=== PATIENT | female | born 1950 | race Caucasian/White ===

== ENCOUNTER 2019-05-08 15:08 | Inpatient (IN) | payer MEDICARE, SELFPAY ==
[2019-05-08 13:58] VITALS: BMI 28.9
[2019-05-08 15:10] VITALS: BP 104/68; PULSE 95; RESP 18; TEMP 36.7; O2SAT 96; BMI 29.4
[2019-05-08 16:35] LABS: Absolute Neutrophil Count 1.6 X10^3/uL (2.0-7.7); Neutrophil # 1.63 X10^3/uL (2.7-7.7); POSITIVE MORPHOLOGY YES; White Blood Count 3.3 K/mm3 (4.4-11.0)
[2019-05-08 16:36] LABS: NRBC Flagged by Analyzer 1.5 % (0-5)
[2019-05-08 16:37] LABS: Differential Indicated SCAN CRITERIA MET
[2019-05-08 16:39] LABS: Red Blood Count 2.74 M/mm3 (4.2-5.4)
[2019-05-08 16:40] LABS: Hematocrit 29.9 % (37-47); Hemoglobin 9.8 g/dL (12.0-15.0); Mean Corpuscular Hgb 35.8 pg (27.0-32.0); Mean Corpuscular Volume 109.1 fL (81-99)
[2019-05-08 16:41] LABS: Mean Corp Hgb Conc 32.8 g/dL (32-36); Platelet Count 55 K/mm3 (150-450); RBC Distribution Width CV 24.7 % (11.6-14.6); RBC Distribution Width SD 92.7 fl (35.1-43.9)
[2019-05-08 16:42] LABS: Lymphocyte % 23.5 % (19-41); Mean Platelet Vol. 12.1 fl (6.2-12.0); Monocyte% 24.7 % (0-10); Neutrophil % 49.7 % (47-70); POSITIVE COUNT NO; POSITIVE DIFFERENTIAL NO
[2019-05-08 16:43] LABS: Basophil% 0.6 % (0-1); Eosinophils% 0.3 % (0-5); Lymphocyte # 0.77 X10^3/ul (4.0)
[2019-05-08 16:44] LABS: Absolute Lymphocyte Count 0.77 X10^3/uL (0.83-4.51); Basophil# 0.02 X10^3/uL; Eosinophil# 0.01 X10^3/uL; Monocyte# 0.81 X10^3/uL
[2019-05-08 16:49] LABS: Anion Gap 7 (5-15); BUN 22 mg/dL (7-18); BUN/Creat Ratio 24.9 RATIO (10-20); Calcium,Total 9.7 mg/dL (8.5-10.1); Chloride 101 mmol/L (98-107); Creatinine, Serum 0.88 mg/dL (0.55-1.02); EST Glomerular Filtration Rate 67 mL/min (>60); Est Glom Filt Rate - Afr Amer 81 mL/min (>60); Glucose 110 mg/dL (74-106); Potassium 4.4 mmol/L (3.5-5.1); Sodium Level 135 mmol/L (136-145)
[2019-05-08 16:51] LABS: International Normalized Ratio 1.5; Prothrombin Time (Protime)PT. 17.9 SECONDS (11.7-14.9)
[2019-05-08 17:07] LABS: Anisocytosis 1+; Macrocytosis 1+; Platelet Estimate MOD DEC (ADEQ)
[2019-05-08] MEDS: Ondansetron 4 MG/2 ML Vial IV (18:08)
[2019-05-08] MEDS: Morphine 4 MG/ML Syringe IV (18:08)
[2019-05-08 18:13] VITALS: BP 103/70; PULSE 98; RESP 15; O2SAT 98
[2019-05-08 18:19] LABS: AST(SGOT) 12 U/L (15-37); Alanine Aminotransfer ALT/SGPT 18 U/L (13-56); Albumin, Serum 3.4 g/dL (3.2-5.0); Alkaline Phosphatase 95 U/L (45-117); Bilirubin, Direct 0.47 mg/dL (0.00-0.30); Globulin 3.7 g/dL (2.2-4.2); Protein, Total 7.1 g/dL (6.4-8.2)
[2019-05-08 18:30] LABS: D-Dimer Quantitative (DVT/PE) 8.86 FEU/ug/m (0.27-0.49)
--- NOTE | 2019-05-08 18:31 | CT_ITS ---
STUDY: CTA CHEST REASON FOR EXAM: Female, 69 years old. BACK PAIN, DYSPNEA, RECENT THORACENTESIS, ASCITES, HYSTERECTOMY, VALVE REPLACEMENT, HX LYMPHOMA YEARS AGO RADIATION DOSAGE (If Supplied By Facility): CTDIvol = ( 13.51 ) mGy, DLP = ( 393.42 ) mGycm TECHNIQUE: The examination was performed with the intravenous administration of IV 100mL [id number]-370 100ML. Post-processing of the angiographic images was performed, with multiplanar reformation and 3D reconstruction. Individualized dose optimization techniques were used for this CT. COMPARISON: None. FINDINGS: Right lower lobe atelectasis with complete collapse is present. A moderate size right pleural effusion is present. There is minimal atelectasis of the posterior aspect of the right middle lobe. Normal right upper lobe. Minor pleural thickening is present in the left lower lobe. No consolidation. No pneumothorax. Normal enhancement of the main pulmonary artery and right and left pulmonary arteries. Normal enhancement of the bilateral peripheral pulmonary arteries. There is no demonstrated pulmonary embolism. There is atherosclerotic calcification of the aortic arch with tortuosity. A vascular stent graft is present aortic root. There is no demonstrated aortic dissection. Normal heart and pericardium. Normal mediastinum. Normal hilar regions. Normal visualized trachea and bronchi. Normal chest wall structures. There are degenerative changes of thoracic spine. No aggressive osseous process visualized. A large amount of abdominal ascites is present. The liver appears shrunken and cirrhotic. Mild enlargement of the spleen. Benign hyperplasia versus a small nodule of the left adrenal gland incompletely assessed on this study. CT/CTA Chest W/WO Contrast IMPRESSION: 1. Right lower lobe atelectasis with complete collapse is present. 2. A moderate size right pleural effusion is present. 3. No demonstrated pulmonary embolism or arterial dissection. 4. A large amount of abdominal ascites is present. The liver appears shrunken and cirrhotic. 5. Mild enlargement of the spleen. 6. Benign hyperplasia versus a small nodule of the left adrenal gland incompletely assessed on this study. Electronically Signed: Rachid Encarnacion MD at 19:56 EDT , Service support ,
--- NOTE | 2019-05-08 18:31 | ED.RN ---
CRITICAL LAB REPORTED TO DR CLAY. D-DIMER 8.86 NEEMA CHRISTIAN [id number]
[2019-05-08] MEDS: DiphenhydrAMINE 50 MG/ML Syringe 25 MG IV (18:45)
[2019-05-08] MEDS: MethylPREDNISolone 125 MG/2 ML Vial IV (18:45)
--- NOTE | 2019-05-08 20:51 | PCM.HP.STD ---
Problem List (1) Myelodysplasia (myelodysplastic syndrome) Status: Chronic (2) Ascites Status: Acute Qualifiers: Ascites type: other type Qualified Code(s): R18.8 - Other ascites (3) Pleural effusion Status: Acute History of Present Illness Date of Admission: 05/08/19 Chief Complaint: fluid overload. The patient is a 69 year old F with a significant history of liver cirrhosis presumably following chemotherapy for lymphoma and with ascites; aortic valve replacement; portal hypertension; esophageal varices; MDS and HTN who was sent from his oncologies office because of fluid overload. Per patient and family patient was seen by oncologist a week ago and on the day of presentation. Per family oncologist realized that patient was fluid overloaded compared to previous week so patient was sent to the ED so she can have paracentesis. Patient reports feeling progressively short of breath for about 1 month. Although she was short of breath before a month ago and shortness of breath has progressively worsened.. Her shortness of breath is at rest and it increases markedly with minimal exertion. Associated with her symptoms is orthopnea; paroxysmal nocturnal dyspnea; and bilateral feet edema. She thinks she has gained about 10 pounds in the last week. Further, patient has right back pain. At the emergency department patient was found to have moderate right pleural effusion. The last time patient had paracentesis was about 2 to 3 months ago. Patient reported that she was just discharged from [facility] a day before presentation. She spent one night at [facility] and was transfused blood. 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 Diverticulitis K57.92 Esophageal varices I85.00 Gastrointestinal bleeding K92.2 History of abdominal paracentesis Z98.890 10/03/17 at [facility]- 3000 CC removed History of blood transfusion Z92.89 History of shingles Z86.19 Pancytopenia D61.818 Portal hypertension K76.6 Shortness of breath on exertion R06.02 Stenosis of aorta Q25.3 port placement right chest on 01/17/18 at [facility] High blood pressure I10 Allergies Iodinated Contrast Media [CONTRASTS] Allergy (Verified 05/08/19 15:10) Hives Sulfa (Sulfonamide Antibiotics) Allergy (Verified 05/08/19 15:10) Hives Home Medications: Ambulatory Orders Medication Instructions Recorded Clopidogrel Bisulfate [Plavix] 75 mg PO DAILY 05/01/19 Furosemide [Lasix] 40 mg PO DAILY 05/01/19 Spironolactone [Aldactone] 50 mg PO DAILY 05/01/19 Surgical History: Surgical History (Last Reviewed 05/09/19 @ 07:05 by Yasmani Cardona MD) H/O unilateral oophorectomy Z90.721 History of bone marrow biopsy Z98.890 12/19/17 at [facility] History of cholecystectomy Z90.49 History of colonoscopy Z98.890 History of dilation and curettage Z98.890 History of tubal ligation Z98.51 Lives: Spouse/ Significant Other Smoking Status: Former smoker Tobacco Use: Cigarettes Alcohol: Rare - *Family History Maternal History Items: Heart Disease Paternal History Items: Cancer - Esophageal, Stroke Review of Systems Constitutional: Denies: Chills, Fever, Weight Change HEENT: Denies: Head Aches, Sinus Congestion, Sinus Drainage Cardiovascular: Reports: Edema, Orthopnea, Palpitations. Denies: Chest Pain Respiratory: Reports: Shortness of breath at rest. Denies: Cough Gastrointestinal: Denies: Abdominal Pain, Nausea, Vomiting Genitourinary: Denies: Dysuria Musculoskeletal: Reports: Back Pain. Denies: Joint Pain, Joint Tenderness Skin: Denies: Rash, Wounds Neurological: Denies: Numbness, Tingling, Focal weakness Psychiatric: Denies: Anxiety, Depression, Homicidal Ideations, Suicidal Ideations Hematologic/ Lymphatic: Denies: Easy Bruising, Easy Bleeding VTE Information - Inpt Only VTE Present on Admission: No VTE Mechan Device Prophylaxis: SCD's VTE Pharm Prophylaxis ordered?: No Patient Problems: Active and Suspected Problems (Last Reviewed 05/09/19 @ 03:47 by Yasmani Cardona MD) Ascites (Acute) Pleural effusion (Acute) - Physical Exam Vitals/I&O's: Vital Signs Temp Pulse Resp BP Pulse Ox 98.1 F 98 15 103/70 98 05/08/19 15:10 05/08/19 18:13 05/08/19 18:13 05/08/19 18:13 05/08/19 18:13 Oxygen Delivery Method Room Air Weight: 75.296 kg Body Mass Index (BMI) 29.4 General: Alert, Oriented x3, Cooperative HEENT: Atraumatic, PERRLA, EOMI, Normocephalic, - - Mild scleral icterus Neck: Supple, No JVD, Negative Carotid Bruits Lungs: Clear to auscultation, Normal air movement Cardiovascular: Regular rate, No murmurs Abdomen: Bowel Sounds Present, Soft, Non Tender, Distended Extremities: Capillary Refill Less than 3 Seconds, Edema - Bilateral feet Skin: No rashes, No breakdown, - - Jaundice Musculoskeletal: No Tenderness to Palpation of Joints or Extremities Neurological: Cranial nerves II-XII grossly intact Psych/Mental Status: Normal Affect, Appropriate Laboratory Results 05/08/19 16:21: Sodium 135 L, Potassium 4.4, Chloride 101, Carbon Dioxide 27.0, Anion Gap 7, BUN 22 H, Creatinine 0.88, Estim Creat Clear Calc 48.50, Est GFR (MDRD) Af Amer 81, Est GFR (MDRD) Non-Af 67, BUN/Creatinine Ratio 24.9 H, Glucose 110 H, Calcium 9.7 05/08/19 16:21: WBC 3.3 L, RBC 2.74 L, Hgb 9.8 L, Hct 29.9 L, MCV 109.1 H, MCH 35.8 H, MCHC 32.8, RDW Std Deviation 92.7 H, RDW Coeff of Eryn 24.7 H, Plt Count 55 L, MPV 12.1 H, Immature Gran % (Auto) 1.200 H, Neut % (Auto) 49.7, Lymph % (Auto) 23.5, [place] % (Auto) 24.7 H, Eos % (Auto) 0.3, Baso % (Auto) 0.6, Absolute Neuts (auto) 1.6 L, Absolute Lymphs (auto) 0.77 L, Nucleated RBC % 1.5, Diff Path Review May foll, Platelet Estimate MOD DEC, Anisocytosis 1+, Macrocytosis 1+ 05/08/19 16:21: PT 17.9 H, INR 1.5 05/08/19 16:21: Total Bilirubin 4.20 H, Direct Bilirubin 0.47 H, AST 12 L, ALT 18, Alkaline Phosphatase 95, Total Protein 7.1, Albumin 3.4, Globulin 3.7 05/08/19 16:21: D-Dimer Quant (PE/DVT) 8.86 H* Assessment/Plan All Active Problems (Last Reviewed 05/09/19 @ 03:47 by Yasmani Cardona MD) Ascites (Acute) Pleural effusion (Acute) The patient is a 69 year old F with a significant history of liver cirrhosis presumably following chemotherapy for lymphoma and with ascites; aortic valve replacement; portal hypertension; esophageal varices; MDS and HTN with dyspnea secondary to pleural effusion and ascites.. Dyspnea secondary to pleural effusion and ascites Chest CTA showed right lower lobe atelectasis with complete collapse. Moderate size right pleural effusion is present. It also showed large amount of abdominal ascites with shrunken liver and cirrhosis. Mild enlargement of the spleen. Also there is benign hyperplasia with a small nodule of the left adrenal gland incompletely assessed. Patient has allergy to contrast and was pretreated before contrast Patient will need paracentesis and right thoracentesis. However patient's is on Plavix. She has missed 2 doses of her Plavix. She missed her Plavix because she was at the hospital at [facility] and also because he went to see his oncologist and came straight to the ED. Recommend discussing with interventional radiologist for paracentesis and thoracentesis. We will keep patient n.p.o. except meds and hold plavix. Of note patient takes Plavix because of bovine aortic valve replacements with stent. His platelets has been trending down. Consider platelet transfusion before procedures. Will consult oncology PT/INR is unremarkable. Morphine as needed for pain. On home p.o. Lasix. Change p.o. Lasix to IV. Aldactone continued. Pancytopenia likely secondary to MDS. Patient follows up with Dr. Whitman, oncologist. With worsening pancytopenia will consult oncology. Probable left adrenal gland versus small nodule Plasma metanephrine ordered. Has received Solu-Medrol overnight. Consider checking a cortisol level later. Aortic valve replacement. Patient reports that she had aortic bovine valve replacement but the valve was enlarged so she had a stent placed in it. On home Plavix missed 2 doses of Plavix as above. Would hold Plavix for now because patient need thoracentesis/paracentesis. DVT prophylaxis SCD ordered Code Visit Inpatient E&M: 29932 Init Hosp L3
--- NOTE | 2019-05-08 21:05 | ED.VISSUMM ---
- ER Visit Summary Date of Service: 05/08/19 Chief Complaint: [Shortness of breath and back pain] History of Present Illness: The patient is a 69 F [the emergency department stating she has not been feeling well over the last month or so. Patient states that she was seen by her oncologist today and referred to the ER to have possible paracentesis. Patient has history of ascites. Patient states her last paracentesis was about 2 to 3 weeks ago at [facility]. Patient states she is had about 4 paracentesis in the last year and a half. Patient denies any fever. She denies any significant abdominal pain other than bloating and distention. Patient does have right-sided back pain that she is had for 2 to 3 months. She denies any trauma to her back. Has any pain rating down her legs. Patient denies any real cough. Patient does complain of shortness of breath with activity and exertion.] Patient has history of prior lymphoma, myelodysplastic syndrome, GI bleed, and ascites. Physical Examination: [HEENT-PERRLA, EOMI. Cranial nerves II through XII grossly intact. TMs clear. Mucous membranes moist. No adenopathy. Cardiovascular-regular rate and rhythm without murmur or ectopy Lungs-clear to auscultation, chest wall stable without crepitus or subcu emphysema Abdomen-normoactive bowel sounds, soft, nontender, no rebound or rigidity, no peritoneal signs. Back exam-patient does have tenderness palpation over right lumbar paraspinal musculature and right lower ribs. Negative straight leg raises. Deep tendon reflexes are plus 2 out of 4 bilaterally at the patella and Achilles. Patient has normal L5 extension bilaterally. Extremities-intact ?4, normal range of motion, normal pulses, atraumatic] Test Results: [CBC with differential white count 3.3, hemoglobin 9.8, hematocrit 30, platelets 55. Chemistries unremarkable. LFTs showed a total bilirubin of 4.2, alk phos 95, ALT 18, AST 12. CT scan of the chest was obtained after an elevated d-dimer was obtained over 8 which showed no evidence for pulmonary embolism. Patient was noted to have a right pleural effusion with collapse of the right lower lobe. Patient was noted to have severe ascites.] Emergency Department Course and Treatment: [Medicated with morphine and Zofran. She had good relief initially but her pain started to come back.] I do not feel the patient needs to have emergent paracentesis as I do not feel she has bacterial peritonitis. Treatment Plan: [Admit] Disposition: [Admit] Impression: [Back pain Right pleural effusion Dyspnea Ascites] This note was generated with [employer] dictation software. It may contain incorrect words, spelling, and punctuation that were not noted in review of the chart prior to signing ED Disposition - Plan for ED Patient: Referrals: Qi Cervantes MD [Primary Care Provider] -
[2019-05-08 22:04] VITALS: BMI 29.0; BMI 29.1
[2019-05-08 22:08] VITALS: BP 103/68; PULSE 93; RESP 16; TEMP 36.9; O2SAT 96
[2019-05-08] MEDS: Morphine 2 MG/ML Syringe IV (22:43)
[2019-05-08 23:13] VITALS: O2SAT 96
[2019-05-09] VITALS (7 sets, daily range): BP systolic 90–101; BP diastolic 54–73; PULSE 89–102; RESP 16–18; TEMP 36.6–36.8; O2SAT 95–97
[2019-05-09] MEDS: Ondansetron 4 MG/2 ML Vial IV ×3 (05:32→13:37)
[2019-05-09] MEDS: Morphine 2 MG/ML Syringe IV (05:43)
[2019-05-09 06:16] LABS: Absolute Lymphocyte Count 0.32 X10^3/uL (0.83-4.51); Absolute Neutrophil Count 0.9 X10^3/uL (2.0-7.7); Hemoglobin 9.3 g/dL (12.0-15.0); Lymphocyte # 0.32 X10^3/ul (4.0); Lymphocyte % 24.2 % (19-41); Mean Corp Hgb Conc 33.2 g/dL (32-36); Mean Corpuscular Hgb 36.2 pg (27.0-32.0); Mean Corpuscular Volume 108.9 fL (81-99); Mean Platelet Vol. 11.9 fl (6.2-12.0); Monocyte% 7.6 % (0-10); Neutrophil # 0.86 X10^3/uL (2.7-7.7); Neutrophil % 65.2 % (47-70); POSITIVE COUNT YES; POSITIVE DIFFERENTIAL YES; POSITIVE MORPHOLOGY YES; RBC Distribution Width CV 23.9 % (11.6-14.6); RBC Distribution Width SD 90.7 fl (35.1-43.9); Red Blood Count 2.57 M/mm3 (4.2-5.4)
[2019-05-09 06:24] LABS: Anion Gap 6 (5-15); BUN 24 mg/dL (7-18); BUN/Creat Ratio 31.1 RATIO (10-20); Calcium,Total 9.9 mg/dL (8.5-10.1); Chloride 102 mmol/L (98-107); Creatinine, Serum 0.77 mg/dL (0.55-1.02); EST Glomerular Filtration Rate 78 mL/min (>60); Est Glom Filt Rate - Afr Amer 95 mL/min (>60); Estimated Creatinine Clearance 42.68 ml/min; Glucose 169 mg/dL (74-106); Potassium 4.7 mmol/L (3.5-5.1); Sodium Level 133 mmol/L (136-145)
[2019-05-09 06:26] LABS: NRBC Flagged by Analyzer 6.1 % (0-5)
[2019-05-09 06:28] LABS: Differential Indicated SCAN CRITERIA MET; Platelet Count 43 K/mm3 (150-450); White Blood Count 1.3 K/mm3 (4.4-11.0)
[2019-05-09 06:57] LABS: Anisocytosis 1+; Differential Comment SCANNED; Platelet Estimate MKD DEC (ADEQ)
--- NOTE | 2019-05-09 07:46 | PN_ITS ---
Patient Problems: Active and Suspected Problems (Last Reviewed 05/09/19 @ 03:47 by Yasmani Cardona MD) Ascites (Acute) Pleural effusion (Acute) Subjective: CC: Ascites Patient is a 69-year-old lady with past medical history significant for lymphoma for which she completed chemo in May 2018, myelodysplastic syndrome with pa ncytopenia who was sent to the ED with progressive shortness of breath. Imaging studies demonstrated right-sided moderate pleural effusion as well as large amount of ascitic fluid. Admitted to regular nursing for further management Objective: GENERAL: cooperative HEENT: Atraumatic; EYES; Anicteric, Normal Conjunctiva NECK; supple, normal thyroid, RESPIRATORY: Diminished to auscultation CARDIOVASCULAR: Regular S1 S2, GI: soft, normoactive bowel sounds, distended with dullness to percussion : No Renal angle tenderness; EXTREMITIES: No edema, no clubbing, MUSCULOSKELETAL: no muscle waisting NEURO: Awake; no lateralizing signs. SKIN: No Rash PSYCH; Flat affect Vitals/I&O's: Vital Signs Temp Pulse Resp BP Pulse Ox 98.2 F 89 16 101/60 96 05/09/19 04:00 05/09/19 04:00 05/09/19 04:00 05/09/19 04:00 05/09/19 04:00 Oxygen Delivery Method Room Air Weight: 75.7 kg Body Mass Index (BMI) 29.0 Intake and Output for Last 24 Hours 05/07/19 05/08/19 05/09/19 23:59 23:59 23:59 Intake Total 300 / 300 Balance 300 / 300 Laboratory Results 05/08/19 16:21: Sodium 135 L, Potassium 4.4, Chloride 101, Carbon Dioxide 27.0, Anion Gap 7, BUN 22 H, Creatinine 0.88, Estim Creat Clear Calc 48.50, Est GFR (MDRD) Af Amer 81, Est GFR (MDRD) Non-Af 67, BUN/Creatinine Ratio 24.9 H, Glucose 110 H, Calcium 9.7 05/08/19 16:21: WBC 3.3 L, RBC 2.74 L, Hgb 9.8 L, Hct 29.9 L, MCV 109.1 H, MCH 35.8 H, MCHC 32.8, RDW Std Deviation 92.7 H, RDW Coeff of Eryn 24.7 H, Plt Count 55 L, MPV 12.1 H, Immature Gran % (Auto) 1.200 H, Neut % (Auto) 49.7, Lymph % (Auto) 23.5, [place] % (Auto) 24.7 H, Eos % (Auto) 0.3, Baso % (Auto) 0.6, Absolute Neuts (auto) 1.6 L, Absolute Lymphs (auto) 0.77 L, Nucleated RBC % 1.5, Diff Path Review Kirti reyes, Platelet Estimate MOD DEC, Anisocytosis 1+, Macrocytosis 1+ 05/08/19 16:21: PT 17.9 H, INR 1.5 05/08/19 16:21: Total Bilirubin 4.20 H, Direct Bilirubin 0.47 H, AST 12 L, ALT 18, Alkaline Phosphatase 95, Total Protein 7.1, Albumin 3.4, Globulin 3.7 05/08/19 16:21: D-Dimer Quant (PE/DVT) 8.86 H* 05/09/19 05:55: Sodium 133 L, Potassium 4.7, Chloride 102, Carbon Dioxide 25.0, Anion Gap 6, BUN 24 H, Creatinine 0.77, Estim Creat Clear Calc 42.68, Est GFR (MDRD) Af Amer 95, Est GFR (MDRD) Non-Af 78, BUN/Creatinine Ratio 31.1 H, Glucose 169 H, Calcium 9.9 05/09/19 05:55: WBC 1.3 L*, RBC 2.57 L, Hgb 9.3 L, Hct 28.0 L, MCV 108.9 H, MCH 36.2 H, MCHC 33.2, RDW Std Deviation 90.7 H, RDW Coeff of Eryn 23.9 H, Plt Count 43 L*, MPV 11.9, Immature Gran % (Auto) 3.000 H, Neut % (Auto) 65.2, Lymph % (Auto) 24.2, [place] % (Auto) 7.6, Eos % (Auto) 0.0, Baso % (Auto) 0.0, Absolute Neuts (auto) 0.9 L, Absolute Lymphs (auto) 0.32 L, Nucleated RBC % 6.1 H, Differential Comment SCANNED, Diff Path Review Kirti reyes, Platelet Estimate MKD DEC, Anisocytosis 1+ 05/09/19 05:55: Plas Tot Catecholamine Pending, Dopamine Pending, Epinephrine Pending, Norepinephrine Pending Current Medications Albuterol Sulfate (Ventolin Aerosols) 2.5 mg INHALATION Q2H PRN PRN PRN Reason: Shortness of Breath/Wheezing Dextrose (D50w Syringe) 0 gm IV X1 PRN; Protocol PRN Reason: Hypoglycemia Furosemide (Lasix) 40 mg IV DAILY GRANT Glucagon () 1 mg IM .X1 PRN PRN Reason: Hypoglycemia Morphine Sulfate () 2 mg IV Q3H PRN PRN PRN Reason: Pain Score 6-10/10 Last Admin: 05/09/19 05:43 Dose: 2 mg Documented by: Nutritional Formula (Lactose Free) (Ensure Enlive) 120 ml PO 4X/DAY GRANT Ondansetron HCl (Zofran) 4 mg IV Q8H PRN PRN PRN Reason: NAUSEA/VOMITING Last Admin: 05/09/19 05:32 Dose: 4 mg Documented by: Spironolactone (Aldactone) 50 mg PO DAILY GRANT STROKE Vital Signs/Narrative: Vital Signs Temp Pulse Resp BP Pulse Ox 05/09/19 04:00 98.2 F 89 16 101/60 96 Medical Necessity - Tobacco Use Smoking Status: Former smoker Tobacco Use: Cigarettes Assessment/Plan All Active Problems (Last Reviewed 05/09/19 @ 03:47 by Yasmani Cardona MD) Ascites (Acute) Pleural effusion (Acute) Patient is a 69-year-old lady with past medical history significant for lymphoma for which she completed chemo in May 2018, myelodysplastic syndrome with pancytopenia who was sent to the ED with progressive shortness of breath. Imaging studies demonstrated right-sided moderate pleural effusion as well as large amount of ascitic fluid. Admitted to regular nursing for further management 1. Ascites -Patient has underlying cirrhosis which is thought to be secondary to nonalcoholic fatty liver disease. Patient has had previous for paracentesis. Presented with significant abdominal ascites compromising her breathing. Admitted to regular nursing floor and order was given for patient to undergo ultrasound-guided paracentesis by interventional radiology. With patient being thrombocytopenic an order was given for patient to be transfused with platelets prior to the procedure 2. Pleural effusion -Plan is for patient to undergo ultrasound-guided thoracocentesis by interventional radiology with fluid sample sent for cytology, cell counts cultures 3. Pancytopenia Secondary to MDS patient is followed by oncology Dr. Whitman with plans for patient to resume care. Is underway for patient to undergo thoracocentesis as well as paracentesis and order was given for patient to be transfused 1 unit apheresis platelets 4. 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 Coronary artery disease with previous stent placement patient is on Plavix apparently she has not had it for 2 days 6. Aortic valve disease -With history of aortic valve replacement with bovine material 7. Hypertension ~ blood pressure controlled, home medications continued with dose adjustment as needed 2. Left adrenal gland nodule Patient undergo work-up as outpatient 9. DVT prophylaxis - SCDs Lovenox Advance planning; did discuss with the patient regarding advanced directives as well as CODE STATUS. Did explain the various scenarios involved ( FULL CODE, DNR CCA, DNR CCA with no intubation, and DNR CC and what each meant) patient elected full code with intubation and CPR if indicated. Order was placed. Time spent on discussion 20 minutes. Code Visit Inpatient E&M: 65842 Subs Hosp L3 Procedures: 46887 Advncd Care Plan 30 Min
--- NOTE | 2019-05-09 08:47 | NURSING ---
Addendum entered by Griselda Lundy 05/09/19 09:09: Dr. Whitman consulted and notified of information below. Addendum entered by Griselda Lundy 05/09/19 09:07: Patient feeling miserable due to accumulation of fluid to abdomen. Dr. Banks requested US to complete paracentesis today after plt transfusion. Notified that Dr. Sweeney will not completed due to pt taking plavix 3 days ago- must be off of plavix for [address] Banks looking into transfer for pt to have procedures completed. Original Note: US called and notified this RN of orders of paracentesis and thoracentesis. Notified US that Plts are 43 and that pt takes plavix- for bad aortic valve and has bovine valve with stent (murmur auscultated). Pt has been off of plavix for 2 days. Plts to be picked up by archivist political history and will be given when arrive around 1100.
[2019-05-09 08:55] LABS: ALB/GLOB Ratio 0.9 RATIO (0.9-2.4); Albumin, Serum 3.4 g/dL (3.2-5.0); Globulin 3.9 g/dL (2.2-4.2); LDH 225 U/L (84-246); Protein, Total 7.3 g/dL (6.4-8.2)
--- NOTE | 2019-05-09 09:11 | CASEMGMT ---
NEEMA CM notified that patient will need to be transferred to tertiary facility, [facility] and [facility] are in-network with insurance.
[2019-05-09] MEDS: Furosemide 40 MG/4 ML Vial IV (09:16)
[2019-05-09] MEDS: Morphine 4 MG/ML Syringe IV ×2 (09:16→13:37)
--- NOTE | 2019-05-09 11:20 | DCINST_ITS ---
- Discharge Diagnoses Current Active Problems: Current Active and Chronic Problems (Last Reviewed 05/09/19 @ 03:47 by Yasmani Cardona MD) Myelodysplasia (myelodysplastic syndrome) (Chronic) Ascites (Acute) Pleural effusion (Acute) You will use the following diet at home:: No restrictions Allergies/Adverse Reactions: Allergies Iodinated Contrast Media [CONTRASTS] Allergy (Verified 05/08/19 15:10) Hives Sulfa (Sulfonamide Antibiotics) Allergy (Verified 05/08/19 15:10) Hives Medications to take at Discharge Clopidogrel Bisulfate [Plavix] 75 mg PO DAILY 05/01/19 Furosemide [Lasix] 40 mg PO DAILY 05/01/19 Spironolactone [Aldactone] 50 mg PO DAILY 05/01/19 Primary Care Physician: Qi Cervantes MD [Primary Care Provider] - Please follow up with your Primary Care Physician in: in 1-2 weeks Test Results: Test results from this visit will be discussed in further detail at your follow- up appointment, if applicable. Please Follow Up With: Yasmani Whitman MD When: in 1 week Proposed Discharge Date: 05/09/19
--- NOTE | 2019-05-09 11:21 | PCM.DC.SUM ---
Discharge Date and Diagnosis - Problem List Patient Problems: Active and Suspected Problems (Last Reviewed 05/09/19 @ 03:47 by Yasmani Cardona MD) Ascites (Acute) Pleural effusion (Acute) Date of Admission: 05/08/19 Date of Discharge: 05/09/19 - Primary Discharge Diagnosis Active and Suspected Problems (Last Reviewed 05/09/19 @ 03:47 by Yasmani Cardona MD) Ascites (Acute) Pleural effusion (Acute) - Secondary Discharge Diagnosis Chronic Problems (Last Reviewed 05/09/19 @ 03:47 by Yasmani Cardona MD) Myelodysplasia (myelodysplastic syndrome) (Chronic) Hospital Course and Treatment Imaging Results: 05/12/19 10:30 Paracentesis with US [US] Routine Thoracentesis W US [US] Routine Summary of Care Provided: Patient is a 69-year-old lady with past medical history significant for lymphoma for which she completed chemo in May 2018, myelodysplastic syndrome with pancytopenia who was sent to the ED with progressive shortness of breath. Imaging studies demonstrated right-sided moderate pleural effusion as well as large amount of ascitic fluid. Admitted to regular nursing for further management 1. Ascites -Patient has underlying cirrhosis which is thought to be secondary to nonalcoholic fatty liver disease. Patient has had 4 previousr paracentesis. Presented with significant abdominal ascites compromising her breathing. Admitted to regular nursing floor was for patient to have undergone ultrasound-guided paracentesis by interventional radiology. IR not able to perform the procedure did discuss with patient. She did agree to be transferred to tertiary care center. Call was placed patient accepted for admission at [facility]. 2. Pleural effusion 3. Pancytopenia Secondary to MDS patient is followed by oncology Dr. Whitman with plans for patient to resume care. 4. 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 Coronary artery disease with previous stent placement patient is on Plavix apparently she has not had it for 2 days 6. Aortic valve disease -With history of aortic valve replacement with bovine material 7. Hypertension ~ blood pressure controlled, home medications continued with dose adjustment as needed 2. Left adrenal gland nodule Patient undergo work-up as outpatient 9. DVT prophylaxis - SCDs Lovenox Patient Problems: Active and Suspected Problems (Last Reviewed 05/09/19 @ 03:47 by Yasmani Cardona MD) Ascites (Acute) Pleural effusion (Acute) - Physical Exam Vitals/I&O's: Vital Signs Temp Pulse Resp BP Pulse Ox 98 F 101 H 16 94/73 96 05/09/19 11:15 05/09/19 11:15 05/09/19 11:15 05/09/19 11:15 05/09/19 11:15 Oxygen Delivery Method Room Air Weight: 75.7 kg Body Mass Index (BMI) 29.0 Intake and Output for Last 24 Hours 05/07/19 05/08/19 05/09/19 23:59 23:59 23:59 Intake Total 300 / 300 Balance 300 / 300 General: Alert HEENT: Atraumatic Neck: Supple Lungs: Diminished Abdomen: Distended Neurological: Neuro grossly intact Psych/Mental Status: Flat Affect Laboratory Results 05/08/19 16:21: Sodium 135 L, Potassium 4.4, Chloride 101, Carbon Dioxide 27.0, Anion Gap 7, BUN 22 H, Creatinine 0.88, Estim Creat Clear Calc 48.50, Est GFR (MDRD) Af Amer 81, Est GFR (MDRD) Non-Af 67, BUN/Creatinine Ratio 24.9 H, Glucose 110 H, Calcium 9.7 05/08/19 16:21: WBC 3.3 L, RBC 2.74 L, Hgb 9.8 L, Hct 29.9 L, MCV 109.1 H, MCH 35.8 H, MCHC 32.8, RDW Std Deviation 92.7 H, RDW Coeff of Eryn 24.7 H, Plt Count 55 L, MPV 12.1 H, Immature Gran % (Auto) 1.200 H, Neut % (Auto) 49.7, Lymph % (Auto) 23.5, Edmunds % (Auto) 24.7 H, Eos % (Auto) 0.3, Baso % (Auto) 0.6, Absolute Neuts (auto) 1.6 L, Absolute Lymphs (auto) 0.77 L, Nucleated RBC % 1.5, Diff Path Review May foll, Platelet Estimate MOD DEC, Anisocytosis 1+, Macrocytosis 1+ 05/08/19 16:21: PT 17.9 H, INR 1.5 05/08/19 16:21: Total Bilirubin 4.20 H, Direct Bilirubin 0.47 H, AST 12 L, ALT 18, Alkaline Phosphatase 95, Total Protein 7.1, Albumin 3.4, Globulin 3.7 05/08/19 16:21: D-Dimer Quant (PE/DVT) 8.86 H* 05/09/19 05:55: Sodium 133 L, Potassium 4.7, Chloride 102, Carbon Dioxide 25.0, Anion Gap 6, BUN 24 H, Creatinine 0.77, Estim Creat Clear Calc 42.68, Est GFR (MDRD) Af Amer 95, Est GFR (MDRD) Non-Af 78, BUN/Creatinine Ratio 31.1 H, Glucose 169 H, Calcium 9.9 05/09/19 05:55: WBC 1.3 L*, RBC 2.57 L, Hgb 9.3 L, Hct 28.0 L, MCV 108.9 H, MCH 36.2 H, MCHC 33.2, RDW Std Deviation 90.7 H, RDW Coeff of Eryn 23.9 H, Plt Count 43 L*, MPV 11.9, Immature Gran % (Auto) 3.000 H, Neut % (Auto) 65.2, Lymph % (Auto) 24.2, Edmunds % (Auto) 7.6, Eos % (Auto) 0.0, Baso % (Auto) 0.0, Absolute Neuts (auto) 0.9 L, Absolute Lymphs (auto) 0.32 L, Nucleated RBC % 6.1 H, Differential Comment SCANNED, Diff Path Review May foll, Platelet Estimate MKD DEC, Anisocytosis 1+ 05/09/19 05:55: Plas Tot Catecholamine Pending, Dopamine Pending, Epinephrine Pending, Norepinephrine Pending 05/09/19 08:20: APTT 30.0 05/09/19 08:20: Blood Type O POSITIVE 05/09/19 08:20: Lactate Dehydrogenase 225, Total Protein 7.3, Albumin 3.4, Globulin 3.9, Albumin/Globulin Ratio 0.9 Current Medications Albuterol Sulfate (Ventolin Aerosols) 2.5 mg INHALATION Q2H PRN PRN PRN Reason: Shortness of Breath/Wheezing Dextrose (D50w Syringe) 0 gm IV X1 PRN; Protocol PRN Reason: Hypoglycemia Furosemide (Lasix) 40 mg IV DAILY GRANT Last Admin: 05/09/19 09:16 Dose: 40 mg Documented by: Glucagon () 1 mg IM .X1 PRN PRN Reason: Hypoglycemia Morphine Sulfate () 4 mg IV Q3H PRN PRN PRN Reason: PAIN 6-04/24 Last Admin: 05/09/19 09:16 Dose: 4 mg Documented by: Nutritional Formula (Lactose Free) (Ensure Clear) 120 ml PO 4X/DAY GRANT Ondansetron HCl (Zofran) 4 mg IV Q4H PRN PRN PRN Reason: NAUSEA/VOMITING Last Admin: 05/09/19 09:16 Dose: 4 mg Documented by: Spironolactone (Aldactone) 50 mg PO DAILY [facility] Discharge Diet: No Restrictions Home Medications: Medications to take at Discharge Clopidogrel Bisulfate [Plavix] 75 mg PO DAILY 05/01/19 Furosemide [Lasix] 40 mg PO DAILY 05/01/19 Spironolactone [Aldactone] 50 mg PO DAILY 05/01/19 Primary Care Physician: Qi Cervantes MD [Primary Care Provider] - Please follow up with your Primary Care Physician in: in 1-2 weeks Please Follow Up With: Yasmani Whitman MD When: in 1 week Disposition: Acute care Hospital [facility] Minutes spent on discharge:: 40 Patient Condition:: Stable Medical Necessity - Tobacco Use Smoking Status: Former smoker Tobacco Use: Cigarettes Meaningful Use Info Meaningful Use Diagnoses (Choose all that apply): None applicable Code Visit Inpatient E&M: 66890 Disch Hosp
[2019-05-09] MEDS: Ensure Clear 120 ML Liquid PO (11:27)
[2019-05-09 11:49] LABS: Pathologist Review Reviewed
[2019-05-09 12:58] LABS: Absolute Lymphocyte Count 0.46 X10^3/uL (0.83-4.51); Absolute Neutrophil Count 3.4 X10^3/uL (2.0-7.7); Basophil# 0.02 X10^3/uL; Basophil% 0.4 % (0-1); Hematocrit 28.8 % (37-47); Hemoglobin 9.5 g/dL (12.0-15.0); Lymphocyte # 0.46 X10^3/ul (4.0); Lymphocyte % 9.8 % (19-41); Mean Corpuscular Hgb 36.4 pg (27.0-32.0); Mean Corpuscular Volume 110.3 fL (81-99); Mean Platelet Vol. 11.1 fl (6.2-12.0); Monocyte# 0.76 X10^3/uL; Monocyte% 16.2 % (0-10); Neutrophil # 3.35 X10^3/uL (2.7-7.7); Neutrophil % 71.3 % (47-70); POSITIVE DIFFERENTIAL YES; POSITIVE MORPHOLOGY YES; Platelet Count 84 K/mm3 (150-450); RBC Distribution Width SD 90.1 fl (35.1-43.9); Red Blood Count 2.61 M/mm3 (4.2-5.4); White Blood Count 4.7 K/mm3 (4.4-11.0)
[2019-05-09 13:01] LABS: Differential Indicated SCAN CRITERIA MET; NRBC Flagged by Analyzer 2.6 % (0-5)
--- NOTE | 2019-05-09 13:56 | NURSING ---
report called to Haja via this RN at 1200 today- left phone number in case questions arise.
[2019-05-09 14:11] LABS: Macrocytosis 2+; Polychromasia RARE
[2019-05-09 14:12] LABS: Platelet Morphology LARGE
[2019-05-12 11:41] LABS: Pathologist Review Reviewed
[2019-05-12 11:42] LABS: Pathologist Review Reviewed
[2019-05-13 11:50] LABS: Epinephrine, Pl 122 pg/mL (0-62); Norepinephrine, Pl 1107 pg/mL (0-874)
[2019-05-13 13:28] LABS: Dopamine, Pl 46 pg/mL (0-48)
== END 2019-05-09 13:50 | disposition short-term general hospital (02) | DRG 433 ==
LOC: ED 17:44 → MS3 22:40
PROVIDERS: Admitting Provider Hospitalist; Emergency Provider Emergency Medicine; Family Provider Internal Medicine Infectious Disease; PCP Internal Medicine Infectious Disease; Referring Provider Hospitalist; Visit Provider Internal Medicine
DX: K74.60 Unspecified cirrhosis of liver (principal); J90 Pleural effusion, not elsewhere classified; D61.818 Other pancytopenia; R18.8 Other ascites; J98.19 Other pulmonary collapse; D46.9 Myelodysplastic syndrome, unspecified; I25.10 Atherosclerotic heart disease of native coronary artery without angina pectoris; Z95.5 Presence of coronary angioplasty implant and graft; Z79.02 Long term (current) use of antithrombotics/antiplatelets; Z95.2 Presence of prosthetic heart valve; I10 Essential (primary) hypertension; E27.8 Other specified disorders of adrenal gland; Z92.21 Personal history of antineoplastic chemotherapy; K76.0 Fatty (change of) liver, not elsewhere classified; Z87.891 Personal history of nicotine dependence; Z85.72 Personal history of non-Hodgkin lymphomas
CPT/HCPCS: 36415; 71275; 80048; 80076; 82040; 82384; 83615; 84156; 85025; 85379; 85610; 85730; 86900; 86901; 86965; 97802; 99284; J7040; P9037; Q9967; A4216; J1940; J2405